=== PATIENT | female | born 2000 | race Two or more races ===

== ENCOUNTER → 2021-03-25 | Outpatient (CLI) | payer SELFPAY ==
[~2021-03-25] MED LIST: DOCU-109 PO; FERR325T72 PO; IBUP-1027 PO
== END ==
LOC: LAB 13:58
PROVIDERS: ATTEND Obstetrics & Gynecology
DX: Z01.812 Encounter for preprocedural laboratory examination (principal); Z20.822 Contact with and (suspected) exposure to COVID-19
CPT/HCPCS: U0003; U0005